=== PATIENT | female | born 1995 | race American Indian/Alaskan Native ===

== ENCOUNTER 2016-12-04 19:06 | Emergency (ER) | payer SELFPAY ==
[2016-12-04] MEDS ORDERED: FUL-GLO OP ONE ×2 (21:47→21:53)
[2016-12-04] MEDS ORDERED: TETRACAINE 0.5% OU ONE (21:48)
[2016-12-04] MEDS ORDERED: TETRACAINE 0.5% ONE (21:53)
--- NOTE | 2016-12-04 22:51 | Emergency Department Report ---
[facility] Chief Complaint: Eye Problems Stated Complaint: PINK EYE Time Seen by Provider: 12/04/16 22:17 Duration: 2 Days Side: Right Severity: moderate Symptoms: Yes Eye Itching, Yes Eye Redness, Yes Eye Pain, Yes Mucous Drainage, Yes Purulent Drainage, No Blurred Vision, No Preceding URI, No H/O Allergic Rhinitis, No Contact Lens Use, No Trauma, No Fever, No Headache ED Review of Systems ROS: Stated complaint: PINK EYE Other details as noted in HPI Constitutional: denies: chills, fever Eyes: eye pain, eye discharge. denies: vision change ENT: denies: ear pain, throat pain Respiratory: denies: cough, shortness of breath, wheezing Cardiovascular: denies: chest pain, palpitations Endocrine: no symptoms reported Gastrointestinal: denies: abdominal pain, nausea, diarrhea Genitourinary: denies: urgency, dysuria, discharge Musculoskeletal: denies: back pain, joint swelling, arthralgia Skin: denies: rash, lesions Neurological: denies: headache, weakness, paresthesias Psychiatric: denies: anxiety, depression Hematological/Lymphatic: denies: easy bleeding, easy bruising ED Past Medical Hx - Past Medical History Previous Medical History?: Yes Hx Asthma: Yes Additional medical history: ECZEMA - Surgical History Past Surgical History?: No - Social History Smoking Status: Never Smoker Substance Use Type: None - Medications Home Medications: Home Medications Medication Instructions Recorded Confirmed Last Taken Type Albuterol *Only Ed* [Proventil 2.5 mg IH Q4H PRN 01/01/13 11/16/14 12/10/12 History 0.5%] ALBUTEROL Inhaler [ProAir HFA 2 puff IH QID PRN #1 inha 11/17/14 Unknown Rx Inhaler] Albuterol Sulfate [Albuterol 0.63% 0.63 mg IH TID PRN #90 ml 11/17/14 Unknown Rx NEBS] Amoxicillin [Amoxicillin ER] 775 mg PO QDAY #10 tbmp.24hr 11/17/14 Unknown Rx Nebulizer [Compact Compressor 1 each MC QID #1 kit 11/17/14 Unknown Rx Nebulizer] Prednisone [predniSONE 5 mg (6-Day 5 mg PO .TAPER #1 tab.ds.pk 11/17/14 Unknown Rx Pack, 21 Tabs)] Acetaminophen [Acetaminophen TAB] 1,000 mg PO Q6HR #30 tablet 12/04/16 Unknown Rx Cetirizine HCl [ZyrTEC] 10 mg PO DAILY #30 tab.chew 12/04/16 Unknown Rx Polymyxin B Sulf/Trimethoprim 1 drop OP Q3HR #1 bottle 12/04/16 Unknown Rx [Polytrim Eye Drops 13834dgtzk/0.1%] [facility] Exam - Exam General: Vital signs noted. No distress. Alert and acting appropriately. Eye Exam: Right Injection, Right Mucous Discharge, Right Purulent Discharge, Right Photophobia, Both EOMI, Both Eye Foreign Body, Neither Chemosis, Neither Abnormal Pupil, Neither Lid Foreign Body, Neither Fluorescein Uptake, Neither Fluorescein Uptake (slit lamp), Neither Cell/Flare (slit lamp), Neither Corneal Edema HEENT: No Nasal Congestion, No Pharyngeal Erythema Remainder of HEENT: Normal Lungs: Yes Clear Lung Sounds, Yes Good Air Exchange, No Wheezes, No Stridor, No Cough, No Nasal Flaring, No Retractions, No Use of Accessory Muscles ED Course Vital Signs 12/04/16 19:26 Temperature 98.5 F Pulse Rate 75 Respiratory 20 Rate Blood Pressure 147/86 O2 Sat by Pulse 100 Oximetry ED Medical Decision Making - Medical Decision Making 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 visusal acuity 20/20 bilat, IOP: 16 mm/hg via tonopen, no corneal abrasion to mason lamp exam, eye irrigated with ns 20 cc eye lid inverted and swept no foreignbody plan: polytrim drops qid,tylenol 1000 mg po tid, zyrtec 10 mg po daily, pt will follow up with ophthalmology upon appointment pt verbalized agreement and understanding of discharge plan. Critical care attestation.: If time is entered above; I have spent that time in minutes in the direct care of this critically ill patient, excluding procedure time. ED Disposition Clinical Impression: Acute bacterial conjunctivitis of right eye Disposition: DC-01 TO HOME OR SELFCARE Is pt being admited?: No Does the pt Need Aspirin: No Condition: Good Instructions: Conjunctivitis (ED) Prescriptions: Acetaminophen [Acetaminophen TAB] 1,000 mg PO Q6HR #30 tablet Cetirizine HCl [ZyrTEC] 10 mg PO DAILY #30 tab.chew Polymyxin B Sulf/Trimethoprim [Polytrim Eye Drops [id number]/0.1%] 1 drop OP Q3HR #1 bottle Referrals: PRIMARY CARE, [Primary Care Provider] - 3-5 Days Forms: Work/School Release Form(ED) Time of Disposition: 22:58
[2016-12-04] MEDS ORDERED: TYLENOL PO ONE (22:54)
[2016-12-04 23:14] VITALS: BP 110/68
== END 2016-12-04 23:10 | disposition home or self-care (01) ==
LOC: ED 19:06
DX: H10.31 Unspecified acute conjunctivitis, right eye (principal); J45.909 Unspecified asthma, uncomplicated
CPT/HCPCS: 99283

== ENCOUNTER 2017-07-08 23:26 | Emergency (ER) | payer SELFPAY ==
[2017-07-08] MEDS ORDERED: ASPIRIN PO ONE (23:54)
[2017-07-09 00:26] LABS: Basophils # (Auto) 0.1 K/mm3 (0.0-0.1); Basophils % (Auto) 0.8 % (0.0-1.8); Eosinophils # (Auto) 0.3 K/mm3 (0.0-0.4); Eosinophils % (Auto) 2.6 % (0.0-4.3); Hemoglobin 12.8 gm/dl (10.1-14.3); Lymphocytes # (Auto) 4.1 K/mm3 (1.2-5.4); Lymphocytes % (Auto) 42.4 % (13.4-35.0); Mean Corpuscular HGB Conc 33 % (30-34); Mean Corpuscular Hemoglobin 29 pg (28-32); Mean Corpuscular Volume 87 fl (79-97); Monocytes # (Auto) 0.6 K/mm3 (0.0-0.8); Monocytes % (Auto) 6.3 % (0.0-7.3); Platelet Count 338 K/mm3 (140-440); Red Blood Count 4.48 M/mm3 (3.65-5.03); Red Cell Distribution Width 13.4 % (13.2-15.2)
[2017-07-09 00:47] LABS: BUN/Creatinine Ratio 17; Blood Urea Nitrogen 12 mg/dL (7-17); Calcium 8.9 mg/dL (8.4-10.2); Hemolysis Index 70
[2017-07-09 04:39] LABS: Bacteria,Urine 1+ /HPF (Negative); Bilirubin,Urine NEG (Negative); Blood,Urine NEG (Negative); Color,Urine Yellow (Yellow); Mucus,Urine FEW /HPF; Protein,Urine <15 mg/dL mg/dL (Negative)
[2017-07-09 09:00] LABS: HCG Qualitative,Urine Negative (Negative)
--- NOTE | 2017-07-09 09:22 | XRay Report ---
CHEST 2 VIEWS INDICATION: Chest pain. COMPARISON: 01/01/2013 FINDINGS: PA and lateral chest radiographs demonstrate stable cardiomediastinal silhouette and clear lungs, given the inspiration. Bilateral nipple ornaments. EKG leads. Unremarkable bones. CONCLUSION: No acute disease. Thank you for the opportunity to participate in this patient's care.
--- NOTE | 2017-07-09 09:41 | Emergency Department Report ---
ED Chest Pain HPI - General Chief Complaint: Chest Pain Stated Complaint: CHEST/BACK PAIN Time Seen by Provider: 07/09/17 08:42 Source: patient Mode of arrival: Ambulatory Limitations: No Limitations - History of Present Illness Initial Comments: 21-year-old female with a past medical history of asthma, eczema, and obesity presents to Hospital complaining of chest pain times several days. Pain is in the middle of the chest, stabbing, intermittent. Pain is worse with deep inspiration, palpation, movement. No specific alleviating at this point. Pain is 6/10 in intensity patient denies cough, fever, recent travel, calf tenderness /edema, history of PE/DVT, or shortness of breath. Patient had 2 episodes of vomiting yesterday that have since resolved. No diarrhea or abdominal pain reported. Patient does use a control implant. Patient also complains of "pain in her back at her kidneys". No dysuria or hematuria reported. Severity scale (0 -10): 6 - Related Data Home Medications Medication Instructions Recorded Confirmed Last Taken Albuterol *Only Ed* [Proventil 2.5 mg IH Q4H PRN 01/01/13 11/16/14 12/10/12 0.5%] Previous Rx's Medication Instructions Recorded Last Taken Type ALBUTEROL Inhaler [ProAir HFA 2 puff IH QID PRN #1 inha 11/17/14 Unknown Rx Inhaler] Albuterol Sulfate [Albuterol 0.63% 0.63 mg IH TID PRN #90 ml 11/17/14 Unknown Rx NEBS] Amoxicillin [Amoxicillin ER] 775 mg PO QDAY #10 tbmp.24hr 11/17/14 Unknown Rx Nebulizer [Compact Compressor 1 each MC QID #1 kit 11/17/14 Unknown Rx Nebulizer] Prednisone [predniSONE 5 mg (6-Day 5 mg PO .TAPER #1 tab.ds.pk 11/17/14 Unknown Rx Pack, 21 Tabs)] Acetaminophen [Acetaminophen TAB] 1,000 mg PO Q6HR #30 tablet 12/04/16 Unknown Rx Cetirizine HCl [ZyrTEC] 10 mg PO DAILY #30 tab.chew 12/04/16 Unknown Rx Polymyxin B Sulf/Trimethoprim 1 drop OP Q3HR #1 bottle 12/04/16 Unknown Rx [Polytrim Eye Drops 21974rdttl/0.1%] traMADol [Ultram 50 MG tab] 50 mg PO Q6HR PRN #20 tablet 07/09/17 Unknown Rx Allergies Allergy/AdvReac Type Severity Reaction Status Date / Time Fish Containing Products Allergy Hives Verified 01/01/13 16:02 NSAIDS (Non-Steroidal Allergy Unknown Verified 12/04/16 19:26 Anti-Inflamma Heart Score - HEART Score History: Slightly suspicious EKG: Normal Age: < 45 Risk factors: 1-2 risk factors Troponin: < normal limit HEART Score: 1 ED Review of Systems ROS: Stated complaint: CHEST/BACK PAIN Other details as noted in HPI Comment: All other systems reviewed and negative ED Past Medical Hx - Past Medical History Previous Medical History?: Yes Hx Asthma: Yes Additional medical history: ECZEMA - Surgical History Past Surgical History?: No - Social History Smoking Status: Never Smoker Substance Use Type: None - Medications Home Medications: Home Medications Medication Instructions Recorded Confirmed Last Taken Type Albuterol *Only Ed* [Proventil 2.5 mg IH Q4H PRN 01/01/13 11/16/14 12/10/12 History 0.5%] ALBUTEROL Inhaler [ProAir HFA 2 puff IH QID PRN #1 inha 11/17/14 Unknown Rx Inhaler] Albuterol Sulfate [Albuterol 0.63% 0.63 mg IH TID PRN #90 ml 11/17/14 Unknown Rx NEBS] Amoxicillin [Amoxicillin ER] 775 mg PO QDAY #10 tbmp.24hr 11/17/14 Unknown Rx Nebulizer [Compact Compressor 1 each MC QID #1 kit 11/17/14 Unknown Rx Nebulizer] Prednisone [predniSONE 5 mg (6-Day 5 mg PO .TAPER #1 tab.ds.pk 11/17/14 Unknown Rx Pack, 21 Tabs)] Acetaminophen [Acetaminophen TAB] 1,000 mg PO Q6HR #30 tablet 12/04/16 Unknown Rx Cetirizine HCl [ZyrTEC] 10 mg PO DAILY #30 tab.chew 12/04/16 Unknown Rx Polymyxin B Sulf/Trimethoprim 1 drop OP Q3HR #1 bottle 12/04/16 Unknown Rx [Polytrim Eye Drops [id number]/0.1%] traMADol [Ultram 50 MG tab] 50 mg PO Q6HR PRN #20 tablet 07/09/17 Unknown Rx ED Physical Exam - General Limitations: No Limitations - Other Other exam information: General: No limitations, patient is alert in no acute distress Head exam: Atraumatic, normocephalic Eyes exam: Normal appearance, pupils equal reactive to light, extraocular movements intact ENT: Moist mucous membrane, normal oropharynx Neck exam: Normal inspection, full range of motion, no meningismus nontender Respiratory exam: Clear to auscultation bilateral, no wheezes, rales, crackles Cardiovascular: Normal rate and rhythm, reducible sternal left-sided upper and mid chest wall tenderness Abdomen: Soft, nondistended, and nontender, with normal bowel sounds, no rebound, or guarding Extremity: Full range of motion normal inspection no deformity, no calf tenderness or edema Back: Normal Inspection, full range of motion, no tenderness Neurologic: Alert, oriented x3, cranial nerves intact, no motor or sensory deficit Psychiatric: normal affect, normal mood Skin: Warm, dry, intact ED Course Vital Signs 07/08/17 07/09/17 07/09/17 23:45 03:00 04:00 Temperature 98.6 F 98.4 F Pulse Rate 70 90 66 Respiratory 20 13 19 Rate Blood Pressure 126/71 116/69 116/73 Blood Pressure 116/69 [Right] O2 Sat by Pulse 100 99 100 Oximetry 07/09/17 07/09/17 07/09/17 05:00 06:16 06:30 Temperature Pulse Rate 93 H 65 75 Respiratory 13 19 15 Rate Blood Pressure 137/82 120/54 133/79 Blood Pressure [Right] O2 Sat by Pulse 98 99 100 Oximetry 07/09/17 07/09/17 07/09/17 06:46 07:00 07:16 Temperature 97.7 F Pulse Rate 65 69 64 Respiratory 14 16 14 Rate Blood Pressure 133/79 133/81 133/81 Blood Pressure 133/81 [Right] O2 Sat by Pulse 99 99 99 Oximetry 07/09/17 07/09/17 07/09/17 07:30 07:46 08:00 Temperature Pulse Rate 68 70 77 Respiratory 11 L 15 13 Rate Blood Pressure 112/57 133/81 106/62 Blood Pressure [Right] O2 Sat by Pulse 100 99 100 Oximetry MEL score - Mel Score Age > 65: (0) No Aspirin use within the Past 7 Days: (0) No 3 or more CAD Risk Factors: (0) No 2 or more Angina events in past 24 hrs: (0) No Known CAD with more than 50% Stenosis: (0) No Elevated Cardiac Markers: (0) No (did not perform) ST Deviation Greater than 0.5mm: (0) No (did not perform) MEL Score: 0 ED Medical Decision Making - Lab Data Result diagrams: 07/09/17 00:13 07/09/17 00:13 Lab Results 07/09/17 07/09/17 07/09/17 Range/Units 00:13 00:13 02:59 WBC 9.7 (4.5-11.0) K/mm3 RBC 4.48 (3.65-5.03) M/mm3 Hgb 12.8 (10.1-14.3) gm/dl Hct 39.0 (30.3-42.9) % MCV 87 (79-97) fl MCH 29 (28-32) pg MCHC 33 (30-34) % RDW 13.4 (13.2-15.2) % Plt Count 338 (140-440) K/mm3 Lymph % (Auto) 42.4 H (13.4-35.0) % Dillon % (Auto) 6.3 (0.0-7.3) % Eos % (Auto) 2.6 (0.0-4.3) % Baso % (Auto) 0.8 (0.0-1.8) % Lymph # 4.1 (1.2-5.4) K/mm3 Dillon # 0.6 (0.0-0.8) K/mm3 Eos # 0.3 (0.0-0.4) K/mm3 Baso # 0.1 (0.0-0.1) K/mm3 Seg Neutrophils % 47.9 (40.0-70.0) % Seg Neutrophils # 4.6 (1.8-7.7) K/mm3 D-Dimer (0-234) ng/mlDDU Sodium 139 (137-145) mmol/L Potassium 4.4 (3.6-5.0) mmol/L Chloride 99.5 (98-107) mmol/L Carbon Dioxide 26 (22-30) mmol/L Anion Gap 18 mmol/L BUN 12 (7-17) mg/dL Creatinine 0.7 (0.7-1.2) mg/dL Estimated GFR > 60 ml/min BUN/Creatinine Ratio 17 % Glucose 85 (65-100) mg/dL Calcium 8.9 (8.4-10.2) mg/dL Troponin T < 0.010 < 0.010 (0.00-0.029) ng/mL Urine Color (Yellow) Urine Turbidity (Clear) Urine pH (5.0-7.0) Ur Specific [place] (1.003-1.030) Urine Protein (Negative) mg/dL Urine Glucose (UA) (Negative) mg/dL Urine Ketones (Negative) mg/dL Urine Blood (Negative) Urine Nitrite (Negative) Urine Bilirubin (Negative) Urine Urobilinogen (<2.0) mg/dL Ur Leukocyte Esterase (Negative) Urine WBC (Auto) (0.0-6.0) /HPF Urine RBC (Auto) (0.0-6.0) /HPF U Epithel Cells (Auto) (0-13.0) /HPF Urine Bacteria (Auto) (Negative) /HPF Urine Mucus /HPF Urine HCG, Qual (Negative) 07/09/17 07/09/17 07/09/17 Range/Units 03:57 03:57 06:00 WBC (4.5-11.0) K/mm3 RBC (3.65-5.03) M/mm3 Hgb (10.1-14.3) gm/dl Hct (30.3-42.9) % MCV (79-97) fl MCH (28-32) pg MCHC (30-34) % RDW (13.2-15.2) % Plt Count (140-440) K/mm3 Lymph % (Auto) (13.4-35.0) % Dillon % (Auto) (0.0-7.3) % Eos % (Auto) (0.0-4.3) % Baso % (Auto) (0.0-1.8) % Lymph # (1.2-5.4) K/mm3 Dillon # (0.0-0.8) K/mm3 Eos # (0.0-0.4) K/mm3 Baso # (0.0-0.1) K/mm3 Seg Neutrophils % (40.0-70.0) % Seg Neutrophils # (1.8-7.7) K/mm3 D-Dimer (0-234) ng/mlDDU Sodium (137-145) mmol/L Potassium (3.6-5.0) mmol/L Chloride (98-107) mmol/L Carbon Dioxide (22-30) mmol/L Anion Gap mmol/L BUN (7-17) mg/dL Creatinine (0.7-1.2) mg/dL Estimated GFR ml/min BUN/Creatinine Ratio % Glucose (65-100) mg/dL Calcium (8.4-10.2) mg/dL Troponin T < 0.010 (0.00-0.029) ng/mL Urine Color Yellow (Yellow) Urine Turbidity Clear (Clear) Urine pH 6.0 (5.0-7.0) Ur Specific [place] 1.021 (1.003-1.030) Urine Protein <15 mg/dl (Negative) mg/dL Urine Glucose (UA) Neg (Negative) mg/dL Urine Ketones Neg (Negative) mg/dL Urine Blood Neg (Negative) Urine Nitrite Neg (Negative) Urine Bilirubin Neg (Negative) Urine Urobilinogen 2.0 (<2.0) mg/dL Ur Leukocyte Esterase Neg (Negative) Urine WBC (Auto) 2.0 (0.0-6.0) /HPF Urine RBC (Auto) 3.0 (0.0-6.0) /HPF U Epithel Cells (Auto) 3.0 (0-13.0) /HPF Urine Bacteria (Auto) 1+ (Negative) /HPF Urine Mucus Few /HPF Urine HCG, Qual Negative (Negative) 07/09/17 Range/Units 08:55 WBC (4.5-11.0) K/mm3 RBC (3.65-5.03) M/mm3 Hgb (10.1-14.3) gm/dl Hct (30.3-42.9) % MCV (79-97) fl MCH (28-32) pg MCHC (30-34) % RDW (13.2-15.2) % Plt Count (140-440) K/mm3 Lymph % (Auto) (13.4-35.0) % Dillon % (Auto) (0.0-7.3) % Eos % (Auto) (0.0-4.3) % Baso % (Auto) (0.0-1.8) % Lymph # (1.2-5.4) K/mm3 Dillon # (0.0-0.8) K/mm3 Eos # (0.0-0.4) K/mm3 Baso # (0.0-0.1) K/mm3 Seg Neutrophils % (40.0-70.0) % Seg Neutrophils # (1.8-7.7) K/mm3 D-Dimer 177.76 (0-234) ng/mlDDU Sodium (137-145) mmol/L Potassium (3.6-5.0) mmol/L Chloride (98-107) mmol/L Carbon Dioxide (22-30) mmol/L Anion Gap mmol/L BUN (7-17) mg/dL Creatinine (0.7-1.2) mg/dL Estimated GFR ml/min BUN/Creatinine Ratio % Glucose (65-100) mg/dL Calcium (8.4-10.2) mg/dL Troponin T (0.00-0.029) ng/mL Urine Color (Yellow) Urine Turbidity (Clear) Urine pH (5.0-7.0) Ur Specific [place] (1.003-1.030) Urine Protein (Negative) mg/dL Urine Glucose (UA) (Negative) mg/dL Urine Ketones (Negative) mg/dL Urine Blood (Negative) Urine Nitrite (Negative) Urine Bilirubin (Negative) Urine Urobilinogen (<2.0) mg/dL Ur Leukocyte Esterase (Negative) Urine WBC (Auto) (0.0-6.0) /HPF Urine RBC (Auto) (0.0-6.0) /HPF U Epithel Cells (Auto) (0-13.0) /HPF Urine Bacteria (Auto) (Negative) /HPF Urine Mucus /HPF Urine HCG, Qual (Negative) - EKG Data -: EKG Interpreted by Nm EKG shows normal: sinus rhythm, axis (43), QRS complexes (87), ST-T waves (no stemi/t inv) Rate: normal (68) - EKG Data When compared to previous EKG there are: no significant change - Radiology Data Radiology results: report reviewed (cxr: naf (read by radiologist)) - Medical Decision Making chest pain is reproducible. Chest x-ray, EKG cardiac enzymes and d-dimer are unremarkable. Low risk for cardiac disease according to clinical scoring systems Plan to Discharge with symptomatic treatment for chest wall pain - Differential Diagnosis costochondritis, chest wall strain, PE, AK, unstable angina Critical Care Time: No Critical care attestation.: If time is entered above; I have spent that time in minutes in the direct care of this critically ill patient, excluding procedure time. ED Disposition Clinical Impression: Chest wall pain Disposition: TO HOME OR SELFCARE Is pt being admited?: No Does the pt Need Aspirin: No Condition: Stable Instructions: Costochondritis (ED) Additional Instructions: Follow with the doctor or clinic provided. Take the medication as prescribed and as needed for pain. Return if symptoms worsen as indicated by your discharge instructions. Prescriptions: traMADol [Ultram 50 MG tab] 50 mg PO Q6HR PRN #20 tablet PRN Reason: Pain Referrals: МАРИЯ BELLO MD [Primary Care Provider] - 3-5 Days [facility] [Provider Group] - 3-5 Days Time of Disposition: 09:44
[2017-07-09 11:27] VITALS: BP 129/76
== END 2017-07-09 11:19 | disposition home or self-care (01) ==
LOC: ED 23:26
DX: R07.89 Other chest pain (principal); J45.909 Unspecified asthma, uncomplicated
CPT/HCPCS: 36415; 71046; 80048; 81001; 81025; 84484; 85025; 85379; 93005; 93010